=== PATIENT | female | born 1950 | race African-American/Black ===

== ENCOUNTER 2017-08-22 14:47 | Inpatient (IN) | payer OTHER ==
[~2017-08-22] VITALS: Ht 172.7 cm; Wt 81.4 kg
[2017-08-22] VITALS (26 sets, daily range): BP systolic 88–140; BP diastolic 49–97
--- NOTE | ~2017-08-22 | HC ---
[facility] [place] [address] CONSULTATION Name: ZARINA NICOLAS Room #: 411- ADM IN M.R.#: [id number] Admission: 08/22/17 Attend Phys: Kameron Mae MD Discharge: Date of : 48 Report #: [id number] THIS REPORT FOR: //name// CC: FAM unknown Kameron Mae DATE OF SERVICE: 08/26/2017 REFERRING PHYSICIAN: Kameron Mae MD. REASON FOR REFERRAL: Chest pain and dyspnea. HISTORY OF PRESENT ILLNESS: The patient is a 66-year-old -[place] female with end-stage renal disease, lupus, admitted with lethargy. She was admitted on 08/22/2017. The patient had complained of persistent chest discomfort. A pulmonary consultation was requested. The patient has been undergoing chronic hemodialysis for the past 20 years for her end-stage renal disease. She has systemic lupus erythematosus. She was doing fairly well until about a year ago. She was hospitalized at [facility], where she is normally hospitalized, that she had "clusters" of blood clots in the lung. She was then given anticoagulation. She said she was on Coumadin. She was also recently hospitalized in early 07/2017 at [facility] for an apparent cardiac arrest. She was found to be in pulseless electrical activity. The cardiac arrest occurred following a right breast biopsy. She remembers receiving CPR on 3 occasions. Ever since the cardiac arrest and CPR, she has had anterior chest wall discomfort that is episodic. It is not getting worse. The patient also smokes. She has been told that she has COPD. Aside from her symptoms, she denies any productive cough, hemoptysis, nausea, vomiting, diarrhea. During this hospital stay, she was found to have small pulmonary embolus by CT chest angiogram. She was also found to have small left-sided DVT. She is currently on anticoagulation. PAST MEDICAL HISTORY: Notable for systemic lupus erythematosus, end-stage renal disease, hemodialysis over the last 20 years, history of seizure disorder, recent cardiac arrest as mentioned above. [facility] [address] [place] [address] CONSULTATION Name: ZARINA NICOLAS Room #: 411-P [facility] IN M.R.#: [id number] Admission: 08/22/17 Attend Phys: Kameron Mae MD Discharge: Date of : 48 Report #: [id number] PAST SURGICAL HISTORY: Include right hip replacement, multiple dialysis catheter placement, partial amputation of the left toe due to history of ischemia involving the right toes, hypothyroidism. ALLERGIES: MORPHINE, SULFA, GABAPENTIN, REACTIONS NOT SPECIFIED. CURRENT MEDICATIONS: List is reviewed. FAMILY HISTORY: Noncontributory. SOCIAL HISTORY: She lives independently by herself. [place] She gets care primarily at [facility]. She has smoked less than a pack a day. She denies any alcohol abuse. REVIEW OF SYSTEMS: As mentioned above. Otherwise 10-point system review negative. PHYSICAL EXAMINATION: GENERAL: She is awake, alert, in no distress. VITAL SIGNS: Temperature is 97.7 degrees Fahrenheit, pulse is 100, respiratory rate is 18, blood pressure is 170/108 mmHg, saturation is 100%. HEENT: Normocephalic, atraumatic. NECK: Supple without lymphadenopathy or thyromegaly. CHEST: Breath sounds are fair without obvious rales or wheezes. CARDIOVASCULAR: Normal S1, S2. No murmurs or gallop. There is no JVD, no carotid bruit. Pulses are 2+/4+ bilaterally. ABDOMEN: Soft, nontender. No organomegaly or masses felt. GENITOURINARY: Deferred. RECTAL: Deferred. EXTREMITIES: There is no edema, cyanosis or clubbing. LABORATORY DATA: CT chest angiogram performed on admission shows small nonocclusive bilateral pulmonary embolus. Patchy infiltrates are seen in both bases, greater in the right lower lobe. Chest x-ray shows small lung volumes, cardiomegaly, infiltrates seen in the right lower lobe, mild atelectasis in the left mid lung field. Sodium 140, potassium 4.3, chloride is 102, bicarbonate is 27, BUN is 28, creatinine 6.1. WBC 66,800, hemoglobin is 8.3, platelets are normal. INR is 2.6. Arterial blood gas on admission revealed pH 7.38, pCO2 38, pO2 of 83 on 5 liters of O2. IMPRESSION: 1. Persistent chest discomfort in this 66-year-old -[place]yan female. Symptoms are likely related to recent CPR due to cardiac arrest. Note that symptoms started following her cardiac arrest. 2. Chronic obstructive pulmonary disease, with ongoing tobacco use. 3. Systemic lupus erythematosus with end-stage renal disease. [address] [address] CONSULTATION Name: ZARINA NICOLAS Room #: [facility]-P [facility] IN M.R.#: [id number] Admission: 08/22/17 Attend Phys: Kameron Mae MD Discharge: Date of : 48 Report #: [id number] 4. Small venothromboembolic disease, small bilateral pulmonary embolus, nonocclusive. This might be chronic. Small left deep venous thrombosis. This may also be chronic. She will be a candidate for prolonged anticoagulation given the comorbid condition and hypercoagulable state. 5. Acute hypoxic respiratory failure due to above. 6. Right lower lobe infiltrates, probable pneumonia, possible aspiration. 7. Anemia due to chronic disease. 8. Recent cardiac arrest, pulseless electrical activity, following an apparent biopsy. 9. History of seizure disorder. RECOMMENDATION: In regards to the chest discomfort, p.r.n. nonsteroidal Tylenol may be helpful. I do not think she needs narcotics. Symptoms should improve over time. Would continue bronchodilator therapy with DuoNeb q.i.d. p.r.n. I agree with broad-spectrum antibiotics for pneumonia. Thank you for this consultation. <ELECTRONICALLY SIGNED> By: Chivo Urbina MD 08/27/17 1407 1542 1916 Chivo Urbina MD /nt
--- NOTE | ~2017-08-22 | HC ---
[place] [address] CONSULTATION Name: ZARINA NICOLAS Room #: 246-P ADM IN M.R.#: [id number] Admission: 08/22/17 Attend Phys: Kameron Mae MD Discharge: Date of : 48 Report #: [id number] THIS REPORT FOR: //name// CC: FAM unknown Kameron Mae DATE OF SERVICE: 08/22/2017 REASON FOR CONSULTATION: End-stage renal disease. HISTORY OF PRESENT ILLNESS: This is a 66-year-old female who has end-stage renal disease and has been a chronic dialysis patient for about 20 years. Systemic lupus erythematosus is the etiology of her end-stage renal disease. Her recent history is one of developing some edema. This was both lower extremities in her feet and legs and then some swelling and erythema of her right breast. A few weeks ago in early July 2017, she was admitted to [facility]. During that time, she was going for a biopsy of this erythematous right breast and developed a pulseless electrical activity (PEA) arrest. She underwent CPR actually on 3 different occasions. Since that time, she has had a lot of chest pain. The patient and her sister who are here in the Emergency Room with her are unaware of what the etiology was surrounding the PEA arrest. After she left [facility], she was admitted to [facility] for some rehabilitation. She was doing better, was actually mobile, up and about and was set to get discharged to home in about 2 days from now. This morning though, she did not feel as well. She had increasing amounts of chest pain, which she has had since her CPR was done. She also was more hypoxemic. She has been on a lot of oxycodone and some chronic fentanyl patch for her chronic pain. EMS was called. They gave her some Narcan. She was brought in to the Emergency Room and she was hypoxemic. At this time, the patient states she is still having a lot of pain in her chest. This is worse with any cough or deep breathing, definitely pleuritic in nature. Her cough has been generally nonproductive. She is unaware of fever. She has felt dyspneic. 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 In the past, she was hypertensive, but now, she tends to run rather severe hypotension and in fact, gets midodrine before each dialysis. She has had some chronic lung disease and in fact, when I saw her about 5 years ago here in [facility], I listed COPD as a diagnosis. She has never had a long-term peripheral dialysis access. She is currently dialyzing with a right femoral vein tunneled dialysis catheter. She has had numerous upper venous catheters based on the scars on her chest. She also has a current what looks to be a right IJ infusion port. She has had previous hip replacement on the right. She has had a partial toe amputation on the left. More recently, she has had some ischemic digits on the right foot. Her sister tells me she was seen by a [address] [place] [address] CONSULTATION Name: ZARINA NICOLAS Room #: 246-P [facility] IN M.R.#: [id number] Admission: 08/22/17 Attend Phys: Kameron Mae MD Discharge: Date of : 49 Report #: [id number] vascular surgeon and was felt to have too many comorbidities for them to do anything to that and it is undetermined whether there were no vessels for target vessels or nothing amenable to percutaneous intervention. She also has a history of seizure disorder and hypothyroidism, on replacement. MEDICATIONS: Medication list is difficult as it covers about 20 pages of records brought over from her rehab center. She is on some Keppra. She is on some thyroid replacement. She is on some prednisone. She is on Renvela as a phosphate binder. She is on a lot of oxycodone and she has been on a fentanyl patch. We are trying to sort through all the other medications. It looks like she is still also on a little bit of prednisone, but unfortunately, I do not have the complete updated list in front of me. ALLERGIES: LISTED TO MORPHINE, SULFA AND GABAPENTIN. FAMILY HISTORY: Noncontributory. SOCIAL HISTORY: The patient is not . She is disabled. She normally lives in an apartment in [place] and dialyzes at [place], although she has been in and out of the hospital and now more recently at [facility]. REVIEW OF SYSTEMS: Has the pleuritic chest pain as noted above. I asked her about prior thrombotic episodes and the best that her sister can tell me is that she was previously on Coumadin, but had problems with GI bleeds while anticoagulated, so that was not kept up senior living. They are unaware of anything like a lupus anticoagulant. Recently developed lower extremity edema. She has chronic pain diffusely. She was getting up and walking some, was eager to get back to home. Appetite has been diminished. Currently, denies nausea or vomiting, had the increased swelling in her right breast with erythema that has actually gone down a little bit, but apparently, the biopsy was never done. She is anuric. PHYSICAL EXAMINATION: GENERAL: Chronically ill-appearing female, seen in the Intensive Care Unit. VITAL SIGNS: Blood pressure 122/75, heart rate 119, oxygen saturation 92% on 5 liters, temperature 98.0 degrees Fahrenheit. HEENT: Shows mildly swollen facial features. Pupils are equal and reactive. Oral mucosa is moist. NECK: Supple. There are numerous collateral vessels across the neck and chest friend, numerous scars from prior catheters. CHEST: Shows bilateral rales, slightly greater on the right than the left. Few rhonchi. HEART: Has a regular tachycardia with somewhat distant heart tones. BREASTS: Right breast is wallace than the left. I do not see the erythema, but there is some hyperpigmentation consistent with recent inflammation. [address] [place] [address] CONSULTATION Name: ZARINA NICOLAS Room #: 246-P ADM IN M.R.#: [id number] Admission: 08/22/17 Attend Phys: Kameron Mae MD Discharge: Date of : 48 Report #: [id number] ABDOMEN: Has a few bowel sounds present. Abdomen is soft, generally nontender. EXTREMITIES: Show 2+ bilateral lower extremity edema. Right toe shows numerous ischemic areas with some early dry gangrene. Absent pedal pulses. Left foot shows a partial amputation of the second toe. Several ischemic areas, one on the heel and a couple of crusted areas on the dorsum of the foot and toes. NEUROLOGIC: She is awake and responsive, oriented and able to converse, moving all extremities. LABORATORY DATA: Sodium 140, potassium 4.9, chloride 103, bicarb 28, BUN 45, creatinine 7.8, calcium 9.0, total protein 6.7, albumin 3.0. Troponin 0.05. INR 1.0. Hemoglobin 7.6, hematocrit 24.2, white count 10.7, platelets 254,000. Differential 90 segs, 3 lymphs, 5 monos, 1 eosinophil. Blood gas on admission, it looks like it is on 5 liters per nasal cannula, pH 7.38, pCO2 of 38.8, pO2 of 83. Chest x-ray shows small volume lungs, increased vascular congestion and early infiltrate/pulmonary edema per my interpretation. A CT scan of the chest done dynamically was interpreted as showing some small nonocclusive pulmonary emboli. ASSESSMENT: 1. A 66-year-old female with numerous chronic medical problems, comes in with hypoxemia. This is complicated by evidence of some volume overload and early pulmonary edema on chest x-ray, her end-stage renal disease, recent pulseless electrical activity arrest, and pain associated with her recent cardiopulmonary resuscitation. I do not know what role these small nonocclusive pulmonary emboli plays. She certainly would have a history to suggest she has potential for venous thrombi, but I am not sure of the small emboli or the cause of her hypoxemia or pain. We will do some dialysis this evening, try to get some volume off as her blood pressure allows to help with her oxygenation. We will obviously be very careful with her recent history of hypotension and pulseless electrical activity arrest. 2. End-stage renal disease, as noted above, last dialyzed 2 days ago. She says she frequently gets 2-3 liters of ultrafiltration with her dialysis. Complex problems with her chronic dialysis access, currently dialyzing using a tunneled right femoral vein catheter. Her neck and chest exam would certainly represent lots of central venous occlusions from old catheters. 3. Recent pulseless electrical activity arrest as noted above, currently in sinus tachycardia. 4. Long history of systemic lupus erythematosus, still on some prednisone. 5. History of seizure disorder. No evidence that she has had recent seizures. 6. Anemia, severe. I am sure she is chronically on erythropoietin, not in need of transfusion at this time. 7. This is a very complex patient with all the aforementioned problems. Again, we will do some dialysis tonight. We will see how she responds to that. She [address] [place] [address] CONSULTATION Name: ZARINA NICOLAS Room #: 246-P ADM IN M.R.#: [id number] Admission: 08/22/17 Attend Phys: Kameron Mae MD Discharge: Date of : 48 Report #: [id number] will likely need more dialysis again tomorrow, but we will reevaluate that pending her response to dialysis tonight. We will try to avoid severe hypotension. We will certainly pay attention for any arrhythmias and instability related to that. We will try to find out more details about any prior thromboembolic events. <ELECTRONICALLY SIGNED> By: Richard Leon MD 08/23/17 0736 1845 0130 Richard Leon MD /nt
--- NOTE | ~2017-08-22 | EEG ---
[facility] [place] [place] [address] ELECTROENCEPHALOGRAM Name: ZARINA NICOLAS Room #: 411-P [facility] IN M.R.#: [id number] Admission: 08/22/17 Attend Phys: Kameron Mae MD Discharge: Date of : 48 Report #: [id number] THIS REPORT FOR: //name// CC: FAM unknown Kameron Mae DATE OF SERVICE: 08/29/2017 This patient has a history of seizures and EEG is being done to evaluate any active seizure activity going on. The patient's EEG was done by placing the electrodes by standard 10-20 system of electrode placement. Background activity in this patient's EEG goes up to about 9 Hz and 30 microvolt. The patient became drowsy and that is associated with bilaterally symmetrical sleep spindle and vertex sharp waves. Photic stimulation was unremarkable. Throughout the record, no active epileptiform activity was noticed. IMPRESSION: This patient's EEG does not demonstrate any active epileptiform activity and was unremarkable. Thank you very much for this referral. By: 1437 1446 Ethan Brandon MD /nt
--- NOTE | ~2017-08-22 | EKG ---
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 SANCHEZ : 1950 Requested By: Kameron Mae Order Number: [id number] MD: Eleazar Romo Measurements Intervals [place] Rate: 119 P: 45 LA: 168 QRS: 48 QRSD: 96 T: 161 QT: 329 QTc: 463 Interpretive Statements Sinus tachycardia Probable left atrial enlargement Probable inferior infarct, old Consider anterior infarct Lateral leads are also involved Compared to ECG 08/22/2017 16:10:41 Myocardial infarct finding now present T-wave abnormality no longer present Electronically Signed On 08-27-2017 14:00:15 CDT by Eleazar Romo [email or web address] <ELECTRONICALLY SIGNED> By: Eleazar Romo MD 08/27/17 1400 6 6 Eleazar Romo MD /EPI
--- NOTE | ~2017-08-22 | EKG ---
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 : 1950 Requested By: Rommel Feng Order Number: [id number] MD: Eleazar Romo Measurements Intervals [place] Rate: 116 P: 26 AR: 172 QRS: 33 QRSD: 101 T: 66 QT: 331 QTc: 460 Interpretive Statements Sinus tachycardia Low voltage, precordial leads Nonspecific T abnormalities, lateral leads Compared to ECG 07/30/2012 17:25:02 T-wave abnormality now present Myocardial infarct finding no longer present Electronically Signed On 08-22-2017 21:29:18 CDT by Eleazar Romo [email or web address] <ELECTRONICALLY SIGNED> By: Eleazar Romo MD 08/22/17 2129 1610 1610 Eleazar Romo MD /EPI
--- NOTE | ~2017-08-22 | HC ---
[facility] [place] [address] CONSULTATION Name: ZARINA NICOLAS Room #: 246-P ADM IN M.R.#: [id number] Admission: 08/22/17 Attend Phys: Kameron Mae MD Discharge: Date of : 48 Report #: [id number] THIS REPORT FOR: //name// CC: FAM unknown Kameron Mae REASON FOR CONSULTATION: I was asked to evaluate concerning pneumonia. HISTORY OF PRESENT ILLNESS: The patient was a 66-year-old immunosuppressed and treatment for lupus. She has end-stage renal disease and history of seizure disorder. She has had previous respiratory failure. Was at the longterm where she became more lethargic. It was initially suspected from narcotics. However, she continued with tachycardia and lethargy. Chest x-ray showed bilateral pulmonary infiltrates. Hospitalized through the Emergency Room, placed in intensive care unit. Hemodynamically has been stable. She is on 5 liters of oxygen per nasal cannula. She takes prednisone on a daily basis. She has had poor IV access for her dialysis and is now dialyzing with a right femoral tunneled dialysis catheter. The patient was a poor historian. She has had cough with minimal sputum production. No pleuritic chest pain. She states her throat hurts and her bottom hurts. No recorded decubiti. ALLERGIES: SULFA. MEDICATIONS: As noted on her MAR, having been given vancomycin and Levaquin in the Emergency Room. PAST MEDICAL HISTORY: Lupus, COPD, gastroesophageal reflux, end-stage renal disease, bilateral total hip arthroplasties, right foot ORIF, thyroidectomy, seizure disorder, 2 code blues in the recent past. FAMILY HISTORY: Noncontributory. SOCIAL HISTORY: Smoker of cigarettes. No significant alcohol intake. Did not know her vaccination status. No history of tuberculosis exposure. REVIEW OF SYSTEMS: She has had no diarrhea. No nausea or vomiting. No headache. She is edentulous. Oliguric, neuropathy in both feet. PHYSICAL EXAMINATION: VITAL SIGNS: She is afebrile and hemodynamically stable. GENERAL: She is alert and cooperative on 5 liters of oxygen per nasal cannula. She would scream out when I tried to roll over in bed. SKIN: Otherwise, unremarkable. I did not see any decubiti. She had formed stool in the rectal vault. Small eschar type ulcers to her toes. Decreased pulses in her feet. She had a right tunneled femoral catheter for dialysis, which was unremarkable. HEENT: Unremarkable. Edentulous. [facility] [address] [place] [address] CONSULTATION Name: ZARINA NICOLAS Room #: 246-P [facility].#: [id number] Admission: 08/22/17 Attend Phys: Kameron Mae MD Discharge: Date of : 48 Report #: [id number] NECK: Supple. LUNGS: Coarse breath sounds bilaterally with consolidation heard in the bases, mostly on the right. HEART: Regular without murmur. ABDOMEN: Soft, obese, and nontender. No hepatosplenomegaly or mass. LABORATORY STUDIES: Blood cultures are pending. Chest x-ray shows evidence of edema and infiltrates, right greater than left. CT scan of the chest shows bilateral pulmonary emboli and basilar pneumonia changes. Hemoglobin 6.9, white count 11.6, platelet count 245,000. Sodium 138, potassium 4.3, bicarbonate 27, creatinine 4.5. Procalcitonin 2.5. Ultrasound of lower extremities shows evidence of small clot in the left common femoral vein. BNP was 18,000. Alkaline phosphatase 200, ALT 10, bilirubin 0.4, albumin 3. IMPRESSION AND PLAN: A 66-year-old with lupus, on steroids; end-stage renal disease, institutionalized at a longterm; presents now with pneumonia; pulmonary edema; pulmonary emboli. She has healthcare-associated organisms of most concern. I doubt we are dealing with atypical infectious etiology. Recommend broad antibiotic coverage to include vancomycin, Zosyn, azithromycin and Tamiflu. We will discontinue Levaquin due to potential risk for lowering her seizure threshold. We will obtain sputum culture. Viral respiratory panel, MRSA screen and await blood cultures. Adjust her antibiotics for her renal failure. <ELECTRONICALLY SIGNED> By: Tre Leach MD 08/24/17 1951 1429 1637 Tre Leach MD /nt
--- NOTE | ~2017-08-22 | 2DMMODE ---
[facility] [address] [place] [address] 2 D/M-MODE ECHOCARDIOGRAM Name: ZARINA NICOLAS Room #: 246-P [facility] IN M.R.#: [id number] Admission: 08/22/17 Attend Phys: Kameron Mae, Discharge: Date of : 48 Date of Service: 08/23/17 1607 Report #: [id number] THIS REPORT FOR: //name// APPROVED REPORT Study performed: 08/23/2017 13:55:07 EXAM: Comprehensive 2D, Doppler, and color-flow Echocardiogram Patient Location: ICU Room #: [facility] Status: routine BSA: 1.96 HR: 112 bpm BP: 116/73 mmHg Other Information Study Quality: Technically Difficult Technically limited study due to uncooperative patient, body habitus. Indications Congestive Heart Failure COPD Pulmonary Embolism Dyspnea 2D Dimensions RVDd: 24.92 mm LVEF(%): 67.71 (>50%) IVSd: 15.16 (7-11mm) LVOT Diam: 19.55 (18-24mm) LVDd: 37.84 mm PWd: 16.19 (7-11mm) Ascending Ao: 33.89 (22-36mm) LVDs: 23.83 (25-40mm) Aortic Root: 30.89 mm IVC: 15.00 mm Perea's LVEF: 67.71 % Volumes Left Atrial Volume (Systole) Single Plane 4CH: 83.31 mL Single Plane 2CH: 69.93 mL LA ESV Index: 42.00 mL/m2 Aortic Valve AoV Peak Demetrio.: 1.81 m/s AO Peak Gr.: 14.20 mmHg LVOT Max P.52 mmHg LVOT Max V: 1.06 m/s LUL Vmax: 1.76 cm2 [facility] [place] [address] [place] [address] 2 D/M-MODE ECHOCARDIOGRAM Name: ZARINA NICOLAS Room #: [facility] IN M.R.#: [id number] Admission: 08/22/17 Attend Phys: Kameron Mae, Discharge: Date of : 48 Date of Service: 08/23/17 1607 Report #: [id number] Mitral Valve MV Decel. Time: 140.65 ms MV E Max Demetrio.: 1.68 m/s IVRT: 121.11 ms Pulmonary Valve PV Peak Demetrio.: 1.01 m/s PV Peak Gr.: 4.08 mmHg Tricuspid Valve RAP Estimate: 10.00 mmHg Left Ventricle The left ventricle is normal size. Possible inferoapical hypokinesis Moderate concentric left ventricular hypertrophy. The left ventricular systolic function is normal. The left ventricular ejection fraction is within the normal range. LVEF is 65%. This study is not technically sufficient to allow evaluation of the LV diastolic function due to high heart rate. Right Ventricle The right ventricle is normal size. The right ventricular systolic function is normal. Atria Left atrium is dilated. The right atrium size is normal. Aortic Valve Aortic leaflets are sclerotic. No aortic regurgitation is present. There is no aortic valvular stenosis. Mitral Valve Moderate mitral annular calcification There is no mitral valve regurgitation noted. No evidence of mitral valve stenosis. Tricuspid Valve The tricuspid valve is normal in structure. Trace tricuspid regurgitation. Unable to assess PA pressure. Pulmonic Valve Pulmonic valve is not well visualized. There is no pulmonic valvular regurgitation. Great Vessels The aortic root is normal in size. IVC is normal in size and collapses <50% with inspiration. Port o cath visualized in [facility] [address] [place] [address] 2 D/M-MODE ECHOCARDIOGRAM Name: ZARINA NICOLAS Room #: 246-P [facility] IN .R.#: [id number] Admission: 08/22/17 Attend Phys: Kameron Mae, Discharge: Date of : 48 Date of Service: 08/23/17 1607 Report #: [id number] IVC. Pericardium There is no pericardial effusion. <Conclusion> Technically limited study The left ventricular systolic function is normal. Possible inferoapical hypokinesis. LVEF 65%. Both atria are mildly dilated Aortic leaflets are sclerotic. No aortic regurgitation or stenosis Moderate mitral annular calcification. No mitral valve regurgitation noted. There is no pericardial effusion. <ELECTRONICALLY SIGNED> By: Kyle Givens MD, [facility] 08/23/17 1607 160 160 Kyle Givens MD, FAC /INF
--- NOTE | ~2017-08-22 | HC ---
[facility] [place] [address] [place] [address] CONSULTATION Name: ZARINA NICOLAS Room #: 411-P ADM IN M.R.#: [id number] Admission: 08/22/17 Attend Phys: Kameron Mae MD Discharge: Date of : 48 Report #: [id number] THIS REPORT FOR: //name// CC: FAM unknown Kameron Mae DATE OF SERVICE: 08/27/2017 HISTORY OF PRESENT ILLNESS: This is a 66-year-old female patient who is not able to provide any history. I called the patient's sisters, whose number is in the chart, but cannot reach her. The patient's Neurology consultation is requested because the patient's Keppra level was found to be high. I talked to the nurses looking after this patient. She tells me that she started having seizures when she was about 12. She had grand mal seizures as well as petite mal seizure. She has not had a grand mal seizure for a long period of time. However, she had an EEG done in [facility] and she indicated that EEG has shown still seizure activity and that is why they wanted her to be on Keppra. She is a renal patient. She gets a significant dose of renal. The schedule is renal based. I do not know when was this Keppra level checked. She has no significant side effects from Keppra the best I can tell. She was admitted with lethargy, but that was associated with other medications. REVIEW OF SYSTEMS: Pretty extensive in this patient. I carried out the 14-point review of system and reviewed the patient's record. She was admitted with lethargy. She has problem with respiration, pulmonary embolism, congestive heart failure, end-stage renal disease, opioid use, history of seizure, history of thyroidectomy and lupus. 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 She has undergone code blue in the past. She also has respiratory difficulty in the past. Her memory looks poor, but I do not know what her memory is in her baseline because I cannot reach her system. I carried out the 14-point review of system and this was relevant 14-point review of system. PAST MEDICAL HISTORY: Positive for seizure. FAMILY HISTORY: According to her, is negative for any epilepsy. SOCIAL HISTORY: She does not smoke or drink alcohol. PHYSICAL EXAMINATION: Indicate she is alert, she is responsive. She is only partly oriented. Her speech looks intact. Her memory and fund of knowledge is significantly diminished. Cranial nerve examination 2-12 looks unremarkable. Strength, sensation, reflexes and tone looks symmetrical, but she did poorly on position sense on both sides and reflexes were diminished on both sides. Her klmata-oh-mtic looks okay. I could not have a very good look at the patient's fundus because she could not stare long enough. Her pulses were difficult to feel, and I could not feel them well and she has no edema, cyanosis or jaundice. [address] [address] CONSULTATION Name: ZARINA NICOLAS Room #: 411-P [facility] IN M.R.#: [id number] Admission: 08/22/17 Attend Phys: Kameron Mae MD Discharge: Date of : 48 Report #: [id number] She is moderately built. There are no dysmorphic features of eyes, ears and face. Her vision and hearing looks adequate. Cardiac examination mostly unremarkable. Respiratory examinations indicate the respiration appeared to be stable and she does not appear to be in much respiratory difficulty. She has some rhonchi, but looks like she has significantly improved since admission. Blood pressure is 128/81, respiration is 20, pulse is 120, temperature is 98.2. LABORATORY DATA: Indicate a white count of 6.8. Sodium is 139. She did have a CT scan of the head, which was mostly unremarkable. IMPRESSION: Very difficult to in this patient. It looks like she is on Keppra. Her level is high, but she is not having any significant side effect. Keppra levels are typically not checked and the dosages are on the basis of clinical tolerance, but this is much higher since it has been checked. I will repeat it especially because she is having no significant side effects from it. I would like to get the record from [place] to see how severe her seizures were. RECOMMENDATIONS: 1. Presently, I am going to leave her on the same dose of Keppra as she is not having any side effect. 2. I will get the record from [facility] to see what the levels were there if they checked it. 3. I will repeat her Keppra and see what the level is. 4. If we are unable to get record from [place], we might repeat some EEG here. Thank you very much for this referral and I discussed all of it with the patient in detail. By: 19 44 Ethan Brandon MD /nt
[~2017-08-22 14:47] MED LIST: AMITRIPTYLINE H25 M2 PO; ASPIRIN EC81 M1 PO; CALCIUM CARBON500 M3 PO; COUMADIN 3 MG TA3 MG PO; DIPHENHYDRAM50 MG/M2 IV; DUONEB 2.5-0.5 M3 ML; ESCITALOPRAM OX10 MG PO; KEPPRA 500 MG500 M2 PO; KEPPRA 500 MG500 MG PO; LAMICTAL100 MG PO; LEVOXYL175 MCG PO; LIDODERM 5%1 PATC1 TOP; NORCO 5-325 TA1 EACH PO; NYSTATIN1 EA10; OXYCODONE HCL 55 MG PO; PREDNISONE 5 MG5 M1 PO; PROTONIX40 M2 PO; QUESTRAN LIGHT P4 GM PO; RENVELA800 MG PO; TRILEPTAL150 MG PO; VASOLEX OINTMEN60 G1 TOP; ZOFRAN4 MG PO
[2017-08-22 15:17] LABS: BE(vivo) -2.2 mmol/L (-2 to +3); HCO3 22.6 mmol/L (22.0-26.0); PCO2 38.8 mmHg (35.0-45.0); PO2 83.2 mmHg (80.0-100.0); pH 7.383 (7.360-7.450); sO2 96.1 % (92.0-98.0)
[2017-08-22 15:22] LABS: ABSOLUTE NEUTROPHILS 9.7 thou/uL (1.4-8.2); BASOPHILS 0.4 % (0.0-2.0); EOSINOPHILS 0.9 % (0.0-3.0); HEMATOCRIT 24.2 % (37.0-47.0); HEMOGLOBIN 7.6 gm/dL (12.0-15.0); LYMPHOCYTES 3.1 % (24.0-44.0); MCH 30.3 pg (26.0-34.0); MCHC 31.3 g/dL (28.0-37.0); MCV 96.9 fL (80.0-100.0); MONOCYTES 5.4 % (1.0-8.0); PLATELET COUNT 254 thou/uL (150-400); POLYS 90.2 % (36.0-66.0); RDW 19.6 % (10.5-14.5); WBC 10.7 thou/uL (4.0-11.0)
[2017-08-22 15:27] LABS: ANION GAP 9 mmol/L (7-16); BUN 45 mg/dL (7-18); CHLORIDE 103 mmol/L (98-107); CO2 28 mmol/L (21-32); CREATININE 7.8 mg/dL (0.6-1.0); GLUCOSE 103 mg/dL (74-106); POTASSIUM 4.9 mmol/L (3.5-5.1); SODIUM 140 mmol/L (136-145)
[2017-08-22 15:36] LABS: SALICYLATE < 2.8 mg/dL (2.8-20.0); SGOT 20 U/L (15-37); SGPT 10 U/L (30-65); TOTAL BILIRUBIN 0.4 mg/dL (<0.1-1.0); TOTAL PROTEIN 6.7 g/dL (6.4-8.2); TROPONIN-I 0.05 ng/mL (<0.06)
[2017-08-22 18:06] LABS: PROTIME 10.6 Seconds (9.3-11.4)
[2017-08-22] MEDS ORDERED: LIPITOR 20 MG T20 M1 PO (19:31)
[2017-08-22] MEDS ORDERED: PLAVIX 75 MG TA75 M1 PO (19:31)
[2017-08-22] MEDS ORDERED: ARANESP100 MCG/0. SUBQ (19:32)
[2017-08-22] MEDS ORDERED: SENOKOT-S1 TA2 PO (19:33)
[2017-08-22] MEDS ORDERED: VOLTAREN GEL 1100 G2 TOP (19:33)
[2017-08-22] MEDS ORDERED: COLACE100 MG PO (19:33)
[2017-08-22] MEDS ORDERED: DURAGESIC25 MCG/HR TRANSDERM (19:34)
[2017-08-22] MEDS ORDERED: FAMOTIDINE 20 M20 MG PO (19:34)
[2017-08-22] MEDS ORDERED: FOLIC ACID1 MG PO (19:35)
[2017-08-22] MEDS ORDERED: BREO ELLIPTA 11 EACH INH (19:35)
[2017-08-22] MEDS ORDERED: PROTONIX40 M1 PO (19:35)
[2017-08-22] MEDS ORDERED: MIDODRINE HCL 55 M1 PO (19:35)
[2017-08-22] MEDS ORDERED: LYRICA 50 MG50 MG PO (19:36)
[2017-08-22] MEDS ORDERED: SIMETHICON CHEW80 M1 PO (19:36)
[2017-08-22] MEDS ORDERED: TYLENOL325 MG PO (19:36)
[2017-08-23] VITALS (70 sets, daily range): BP systolic 78–144; BP diastolic 45–126
[2017-08-23 04:05] LABS: CALCIUM 8.5 mg/dL (8.5-10.1); MAGNESIUM 1.7 mg/dL (1.8-2.4); POTASSIUM 4.3 mmol/L (3.5-5.1)
[2017-08-23 04:10] LABS: CREATININE 4.5 mg/dL (0.6-1.0)
[2017-08-23 05:46] LABS: HEMOGLOBIN 6.9 gm/dL (12.0-15.0)
[2017-08-23 05:47] LABS: HEMATOCRIT 22.3 % (37.0-47.0); MCH 30.1 pg (26.0-34.0); MCHC 30.7 g/dL (28.0-37.0); MCV 97.9 fL (80.0-100.0); RBC 2.28 mil/uL (4.20-5.00); WBC 11.6 thou/uL (4.0-11.0)
[2017-08-23 12:11] LABS: HEP B SURFACE Ab(ANTI-HBS Reactive (()); HEPATITIS B SURFACE AG Negative (Negative)
[2017-08-24] VITALS (55 sets, daily range): BP systolic 88–176; BP diastolic 50–109
[2017-08-24 01:57] LABS: INR 1.6; PROTIME 15.8 Seconds (9.3-11.4)
[2017-08-24 05:29] LABS: HEMOGLOBIN 6.5 gm/dL (12.0-15.0)
[2017-08-24 05:31] LABS: HEMATOCRIT 20.9 % (37.0-47.0); MCH 30.2 pg (26.0-34.0); MCHC 31.3 g/dL (28.0-37.0); MCV 96.4 fL (80.0-100.0); RBC 2.16 mil/uL (4.20-5.00); WBC 9.5 thou/uL (4.0-11.0)
[2017-08-24 05:39] LABS: CALCIUM 8.7 mg/dL (8.5-10.1); MAGNESIUM 1.8 mg/dL (1.8-2.4); POTASSIUM 4.7 mmol/L (3.5-5.1)
[2017-08-24 05:41] LABS: CREATININE 6.2 mg/dL (0.6-1.0)
[2017-08-25] VITALS (12 sets, daily range): BP systolic 144–182; BP diastolic 70–112
[2017-08-25 05:59] LABS: ABSOLUTE NEUTROPHILS 7.2 thou/uL (1.4-8.2); BASOPHILS 0.2 % (0.0-2.0); EOSINOPHILS 1.9 % (0.0-3.0); HEMATOCRIT 25.6 % (37.0-47.0); HEMOGLOBIN 8.2 gm/dL (12.0-15.0); LYMPHOCYTES 8.4 % (24.0-44.0); MCHC 32.2 g/dL (28.0-37.0); MCV 93.4 fL (80.0-100.0); MONOCYTES 6.4 % (1.0-8.0); PLATELET COUNT 236 thou/uL (150-400); POLYS 83.1 % (36.0-66.0); RBC 2.74 mil/uL (4.20-5.00); WBC 8.6 thou/uL (4.0-11.0)
[2017-08-25 06:10] LABS: APTT 55.1 Seconds (24.5-32.8); PROTIME 16.1 Seconds (9.3-11.4)
[2017-08-25 06:11] LABS: INR 1.6
[2017-08-25 06:15] LABS: CALCIUM 8.9 mg/dL (8.5-10.1); MAGNESIUM 1.7 mg/dL (1.8-2.4); POTASSIUM 4.2 mmol/L (3.5-5.1)
[2017-08-25 06:16] LABS: CREATININE 4.5 mg/dL (0.6-1.0)
[2017-08-26 04:00] VITALS: BP 180/106
[2017-08-26 06:04] LABS: HEMATOCRIT 25.9 % (37.0-47.0); HEMOGLOBIN 8.3 gm/dL (12.0-15.0); MCH 29.7 pg (26.0-34.0); MCHC 32.3 g/dL (28.0-37.0); MCV 92.1 fL (80.0-100.0); RBC 2.81 mil/uL (4.20-5.00); RDW 18.8 % (10.5-14.5); WBC 6.8 thou/uL (4.0-11.0)
[2017-08-26 06:17] LABS: MAGNESIUM 1.7 mg/dL (1.8-2.4); POTASSIUM 4.3 mmol/L (3.5-5.1)
[2017-08-26 06:22] LABS: CREATININE 6.1 mg/dL (0.6-1.0)
[2017-08-26 07:15] VITALS: BP 172/108
[2017-08-26 07:56] LABS: PROTIME 26.1 Seconds (9.3-11.4)
[2017-08-26 07:58] LABS: INR 2.6
[2017-08-26 16:41] VITALS: BP 149/106
[2017-08-26 20:20] VITALS: BP 122/71
[2017-08-27 03:54] LABS: INR 3.2; PROTIME 31.7 Seconds (9.3-11.4)
[2017-08-27 07:30] VITALS: BP 145/98
[2017-08-27 15:48] VITALS: BP 128/81
[2017-08-27 19:55] VITALS: BP 126/89
[2017-08-28 00:06] LABS: ADENOVIRUS Negative (Negative); INFLUENZA A Negative (Negative); INFLUENZA B Negative (Negative); METAPNEUMOVIRUS Negative (Negative); PARAINFLUENZA 1 Negative (Negative); PARAINFLUENZA 2 Negative (Negative); PARAINFLUENZA 3 Negative (Negative); RHINOVIRUS Negative (Negative); RSV A Negative (Negative); RSV B Negative (Negative)
[2017-08-28 03:52] VITALS: BP 145/98
[2017-08-28 05:54] LABS: PROTIME 28.1 Seconds (9.3-11.4)
[2017-08-28 05:58] LABS: INR 2.9
[2017-08-28 12:01] LABS: HEMATOCRIT 27.3 % (37.0-47.0); HEMOGLOBIN 8.8 gm/dL (12.0-15.0); MCH 29.3 pg (26.0-34.0); MCHC 32.1 g/dL (28.0-37.0); MCV 91.2 fL (80.0-100.0); RDW 19.2 % (10.5-14.5); WBC 6.2 thou/uL (4.0-11.0)
[2017-08-28 12:22] LABS: MAGNESIUM 1.8 mg/dL (1.8-2.4); POTASSIUM 3.8 mmol/L (3.5-5.1); TROPONIN-I 0.06 ng/mL (<0.06)
[2017-08-28 12:23] LABS: CREATININE 3.3 mg/dL (0.6-1.0)
[2017-08-28 16:20] VITALS: BP 142/90
[2017-08-28 20:24] VITALS: BP 125/89
[2017-08-29 04:44] LABS: INR 2.2; PROTIME 21.8 Seconds (9.3-11.4)
[2017-08-29 05:49] VITALS: BP 159/112
[2017-08-29 07:15] VITALS: BP 190/120
[2017-08-29] MEDS ORDERED: COUMADIN 2 MG TA2 M1 PO (14:27)
[2017-08-29] MEDS ORDERED: CEFDINIR300 MG PO (14:27)
[2017-08-29] MEDS ORDERED: AZITHROMYCIN 2250 MG PO (14:27)
[2017-08-29] MEDS ORDERED: COREG6.25 MG PO (14:28)
[2017-08-29] MEDS ORDERED: AMLODIPINE BESY10 MG PO (14:29)
[2017-08-29] MEDS ORDERED: LOTENSIN20 MG PO (14:29)
[2017-08-29] MEDS ORDERED: KEPPRA 500 MG500 M1 PO (14:31)
[2017-08-29] MEDS ORDERED: KEPPRA 500 MG500 MG PO (14:31)
[2017-08-29] MEDS ORDERED: MUCINEX600 MG PO (14:32)
== END 2017-08-29 17:00 | DRG 871 ==
LOC: ER 14:47 → EROBS 16:29 → ICU 16:29 → 4N 08-25 07:01
PROVIDERS: Internal Medicine; Internal Medicine Nephrology; Physician Assistant; Specialist
PROC: 5A1D70Z Performance of Urinary Filtration, Intermittent, Less than 6 Hours Per Day (ICD-10-PCS; 2017-08-22)
PROC: B24BZZ4 Ultrasonography of Heart with Aorta, Transesophageal (ICD-10-PCS; principal; 2017-08-23)
PROC: 5A09357 Assistance with Respiratory Ventilation, Less than 24 Consecutive Hours, Continuous Positive Airway Pressure (ICD-10-PCS; principal; 2017-08-23)
PROC: 5A1D70Z Performance of Urinary Filtration, Intermittent, Less than 6 Hours Per Day (ICD-10-PCS; 2017-08-24)
PROC: 30233N1 Transfusion of Nonautologous Red Blood Cells into Peripheral Vein, Percutaneous Approach (ICD-10-PCS; 2017-08-24)
PROC: 5A1D70Z Performance of Urinary Filtration, Intermittent, Less than 6 Hours Per Day (ICD-10-PCS; 2017-08-26)
PROC: 5A1D70Z Performance of Urinary Filtration, Intermittent, Less than 6 Hours Per Day (ICD-10-PCS; 2017-08-28)
PROC: 4A00X4Z Measurement of Central Nervous Electrical Activity, External Approach (ICD-10-PCS; 2017-08-29)
DX: A41.9 Sepsis, unspecified organism (principal); I26.99 Other pulmonary embolism without acute cor pulmonale; J18.9 Pneumonia, unspecified organism; N18.6 End stage renal disease; J96.01 Acute respiratory failure with hypoxia; I46.9 Cardiac arrest, cause unspecified; G92 Toxic encephalopathy; J44.0 Chronic obstructive pulmonary disease with (acute) lower respiratory infection; I82.412 Acute embolism and thrombosis of left femoral vein; I12.0 Hypertensive chronic kidney disease with stage 5 chronic kidney disease or end stage renal disease; M32.9 Systemic lupus erythematosus, unspecified; G40.909 Epilepsy, unspecified, not intractable, without status epilepticus; D63.8 Anemia in other chronic diseases classified elsewhere; Z66 Do not resuscitate; I73.9 Peripheral vascular disease, unspecified; G89.29 Other chronic pain; D63.1 Anemia in chronic kidney disease; L97.529 Non-pressure chronic ulcer of other part of left foot with unspecified severity; L97.519 Non-pressure chronic ulcer of other part of right foot with unspecified severity; Y95 Nosocomial condition; K21.9 Gastro-esophageal reflux disease without esophagitis; E89.0 Postprocedural hypothyroidism; F17.210 Nicotine dependence, cigarettes, uncomplicated; E66.9 Obesity, unspecified; Z96.643 Presence of artificial hip joint, bilateral; Z99.2 Dependence on renal dialysis; Z68.27 Body mass index [BMI] 27.0-27.9, adult; Z89.422 Acquired absence of other left toe(s); Z79.02 Long term (current) use of antithrombotics/antiplatelets; Z79.51 Long term (current) use of inhaled steroids; Z79.82 Long term (current) use of aspirin; Z79.899 Other long term (current) drug therapy; Z88.2 Allergy status to sulfonamides; Z88.5 Allergy status to narcotic agent; Z88.8 Allergy status to other drugs, medicaments and biological substances
CPT/HCPCS: 10078; 10790; 32100

== ENCOUNTER 2018-05-29 09:21 | Emergency (ER) | payer OTHER ==
[~2018-05-29] VITALS: Ht 162.6 cm; Wt 58.2 kg
[~2018-05-29 09:21] MED LIST changes: +AMLODIPINE BESY10 MG PO; +ARANESP100 MCG/0. SUBQ; +AZITHROMYCIN 2250 MG PO; +BREO ELLIPTA 11 EACH INH; +CEFDINIR300 MG PO; +COLACE100 MG PO; +COREG6.25 MG PO; +COUMADIN 2 MG TA2 M1 PO; +DURAGESIC25 MCG/HR TRANSDERM; +FAMOTIDINE 20 M20 MG PO; +FOLIC ACID1 MG PO; +KEPPRA 500 MG500 M1 PO; +LIPITOR 20 MG T20 M1 PO; +LOTENSIN20 MG PO; +LYRICA 50 MG50 MG PO; +MIDODRINE HCL 55 M1 PO; +MUCINEX600 MG PO; +PLAVIX 75 MG TA75 M1 PO; +PROTONIX40 M1 PO; +SENOKOT-S1 TA2 PO; +SIMETHICON CHEW80 M1 PO; +TYLENOL325 MG PO; +VOLTAREN GEL 1100 G2 TOP
[2018-05-29 10:30] LABS: INR 3.2; PROTIME 33.5 Seconds (9.3-11.4)
[2018-05-29] MEDS ORDERED: TRAMADOL 50 MG50 MG PO (10:56)
[2018-05-29] MEDS ORDERED: TYLENOL325 MG PO (11:08)
[2018-05-29] MEDS ORDERED: REMERON15 MG PO (11:16)
[2018-05-29] MEDS ORDERED: CARDIZEM60 MG PO (11:17)
[2018-05-29] MEDS ORDERED: HEPARIN IV (11:18)
[2018-05-29] MEDS ORDERED: NITROGLYCERIN0.4 MG SUBLING (11:19)
[2018-05-29] MEDS ORDERED: DEPAKOTE ER250 MG PO (11:19)
[2018-05-29] MEDS ORDERED: NYAMYC15 GM TOP (11:20)
[2018-05-29] MEDS ORDERED: SEROQUEL 25 MG25 M1 PO (11:21)
[2018-05-29] MEDS ORDERED: FEROSUL325 M1 PO (11:21)
[2018-05-29] MEDS ORDERED: ATIVAN0.5 MG PO (11:22)
[2018-05-29] MEDS ORDERED: KEFLEX500 M1 PO (11:22)
[2018-05-29] MEDS ORDERED: HECTOROL4 MCG/2 ML IV PUSH (11:23)
[2018-05-29] MEDS ORDERED: ZINC OXIDE57 GM TOP (11:24)
[2018-05-29] MEDS ORDERED: LIDOCAINE1 EACH TOP (11:25)
[2018-05-29 13:34] VITALS: BP 105/76
== END 2018-05-29 13:44 ==
LOC: ER 09:21
PROVIDERS: Emergency Medicine
DX: S43.001A Unspecified subluxation of right shoulder joint, initial encounter (principal); J44.9 Chronic obstructive pulmonary disease, unspecified; K21.9 Gastro-esophageal reflux disease without esophagitis; M32.9 Systemic lupus erythematosus, unspecified; N18.6 End stage renal disease; Z99.2 Dependence on renal dialysis; E89.0 Postprocedural hypothyroidism; Z79.01 Long term (current) use of anticoagulants; Z88.2 Allergy status to sulfonamides; W06.XXXA Fall from bed, initial encounter; Y93.89 Activity, other specified; Y92.89 Other specified places as the place of occurrence of the external cause; Y99.8 Other external cause status

== ENCOUNTER 2018-06-07 22:24 | Inpatient (IN) | payer OTHER ==
[~2018-06-07] VITALS: Ht 167.6 cm; Wt 87.9 kg
[~2018-06-07 22:24] MED LIST changes: +ATIVAN0.5 MG PO; +CARDIZEM60 MG PO; +DEPAKOTE ER250 MG PO; +FEROSUL325 M1 PO; +HECTOROL4 MCG/2 ML IV PUSH; +HEPARIN IV; +KEFLEX500 M1 PO; +LIDOCAINE1 EACH TOP; +NITROGLYCERIN0.4 MG SUBLING; +NYAMYC15 GM TOP; +REMERON15 MG PO; +SEROQUEL 25 MG25 M1 PO; +TRAMADOL 50 MG50 MG PO; +ZINC OXIDE57 GM TOP
[2018-06-07 22:50] LABS: ABSOLUTE NEUTROPHILS 10.5 thou/uL (1.4-8.2); BASOPHILS 0.1 % (0.0-2.0); EOSINOPHILS 0.1 % (0.0-3.0); HEMATOCRIT 25.9 % (37.0-47.0); HEMOGLOBIN 8.3 gm/dL (12.0-15.0); MCV 90.6 fL (80.0-100.0); MONOCYTES 7.6 % (1.0-8.0); PLATELET COUNT 165 thou/uL (150-400); POLYS 89.2 % (36.0-66.0); RBC 2.86 mil/uL (4.20-5.00); RDW 19.8 % (10.5-14.5); WBC 11.8 thou/uL (4.0-11.0)
[2018-06-07 22:56] LABS: CALCIUM 9.5 mg/dL (8.5-10.1); CREATININE 6.4 mg/dL (0.6-1.0); POTASSIUM 4.6 mmol/L (3.5-5.1)
--- NOTE | 2018-06-07 23:04 | NUR ---
SPOKE W/ CELIA BHARDWAJ AT [facility] AND WAS INFORMED THAT THE PT IS A FULL CODE AND NO LONGER PRODUCES URINE. PROVIDER MADE AWARE OF NEW INFORMATION
[2018-06-07 23:05] LABS: ALBUMIN 2.1 g/dL (3.4-5.0); MAGNESIUM 1.8 mg/dL (1.8-2.4); TOTAL BILIRUBIN 0.3 mg/dL (<0.1-1.0); TOTAL PROTEIN 7.9 g/dL (6.4-8.2)
[2018-06-07 23:07] LABS: TROPONIN-I 3.91 ng/mL (<0.06)
[2018-06-08] VITALS (7 sets, daily range): BP systolic 87–128; BP diastolic 49–71
[2018-06-08 00:40] LABS: APTT 47.2 Seconds (24.5-32.8); INR 1.6; PROTIME 16.5 Seconds (9.3-11.4)
--- NOTE | 2018-06-08 02:52 | NUR ---
PTTRASNFERRED TO ROOM 215 IN NAD. A/O X O. DOES NOT FC. AEFRBRILE AND NORMOTENSIVE. HR>130 BPM. ORDER FOR METOPROLOL 5MG IVP HAD BEEN HELD IN THE ED BY NURSING. DISCUSSED WITH CHARGE NURSE AND THIS MED WAS GIVEN ON THE FLOOR. BP =(110-120)/70'S. SKIN IS INTACT, DRY, MUCOSA PINK, LUNGS DIMINISHED, BREATHING IS EVEN AND REGULAR.
[2018-06-08] MEDS ORDERED: CLOTRIMAZOLE 1%15 G1 TOP (08:00)
[2018-06-08] MEDS ORDERED: COUMADIN 2 MG TA2 M1 PO (08:08)
[2018-06-08] MEDS ORDERED: SENNA8.6 MG PO (08:15)
--- NOTE | 2018-06-08 08:28 | EKG ---
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
[2018-06-08] MEDS ORDERED: RENVELA800 MG PO (11:19)
[2018-06-08] MEDS ORDERED: ATIVAN0.5 MG PO (11:21)
--- NOTE | 2018-06-08 12:17 | 2DMMODE ---
[facility] [address] [place] [address] 2 D/M-MODE ECHOCARDIOGRAM Name: ZARINA NICOLAS Room #: 215-P ADM IN M.R.#: [id number] Admission: 06/08/18 Attend Phys: Wilman Jefferson MD Discharge: Date of : 48 Date of Service: 06/08/18 1216 Report #: [id number] THIS REPORT FOR: //name// APPROVED REPORT Study performed: 06/08/2018 10:55:37 EXAM: Comprehensive 2D, Doppler, and color-flow Echocardiogram Patient Location: Bedside Room #: 215 Status: routine BSA: 1.95 HR: 105 bpm BP: 87/49 mmHg Rhythm: Tachycardia Other Information Study Quality: Adequate Indications COPD Elevated Troponin Chest Pain Hypertension/HDD 2D Dimensions RVDd: 32.83 mm IVSd: 15.48 (7-11mm) LVOT Diam: 18.84 (18-24mm) LVDd: 41.19 mm PWd: 16.89 (7-11mm) Ascending Ao: 27.92 (22-36mm) LVDs: 27.91 (25-40mm) Aortic Root: 30.61 mm IVC: 18.00 mm Volumes Left Atrial Volume (Systole) Single Plane 4CH: 47.28 mL Single Plane 2CH: 80.57 mL LA ESV Index: 35.00 mL/m2 Aortic Valve AoV Peak Demetrio.: 1.40 m/s AO Peak Gr.: 7.85 mmHg LVOT Max P.72 mmHg LVOT Max V: 1.20 m/s LUL Vmax: 2.38 cm2 Pulmonary Valve [facility] [address] [address] 2 D/M-MODE ECHOCARDIOGRAM Name: ZARINA NICOLAS Room #: 215-P ADM IN .R.#: [id number] Admission: 06/08/18 Attend Phys: Wilman Jefferson MD Discharge: Date of : 48 Date of Service: 06/08/18 1216 Report #: [id number] PV Peak Demetrio.: 0.88 m/s PV Peak Gr.: 3.12 mmHg Tricuspid Valve TR Peak Demetrio.: 2.63 m/s TR Peak Gr.: 27.74 mmHg PA Pressure: 38.00 mmHg Left Ventricle The left ventricle is normal size. Moderate concentric left ventricular hypertrophy. The left ventricular systolic function is normal. The left ventricular ejection fraction is within the normal range. LVEF is 55-60%. This study is not technically sufficient to allow evaluation of the LV diastolic function. Right Ventricle The right ventricle is normal size. The right ventricular systolic function is normal. Atria Left atrium is dilated. Right atrium is at the upper limits of normal. Aortic Valve The aortic valve is normal in structure. Aortic valve is calcified. No aortic regurgitation is present. There is no aortic valvular stenosis. Mitral Valve The mitral valve is normal in structure. Mild mitral regurgitation. No evidence of mitral valve stenosis. Tricuspid Valve The tricuspid valve is normal in structure. There is mild tricuspid regurgitation. Estimated PAP 38 mmHg. There is mild pulmonary hypertension. Pulmonic Valve The pulmonary valve is normal in structure. There is no pulmonic valvular regurgitation. Great Vessels The aortic root is normal in size. IVC is normal in size and collapses <50% with inspiration. Pericardium There is no pericardial effusion. [facility] [address] [address] 2 D/M-MODE ECHOCARDIOGRAM Name: ZARINA NICOLAS Room #: 215-P [facility] IN M.R.#: [id number] Admission: 06/08/18 Attend Phys: Wilman Jefferson MD Discharge: Date of : 48 Date of Service: 06/08/18 1216 Report #: [id number] <Conclusion> The left ventricle is normal size. LVEF is 55-60%. The right ventricle is normal size. Left atrium is dilated. Right atrium is at the upper limits of normal. The aortic valve is normal in structure. Aortic valve is calcified. The mitral valve is normal in structure. Mild mitral regurgitation. The tricuspid valve is normal in structure. There is mild tricuspid regurgitation. Estimated PAP 38 mmHg. There is mild pulmonary hypertension. The pulmonary valve is normal in structure. There is no pericardial effusion. <ELECTRONICALLY SIGNED> By: Ej Mix MD 06/08/18 1216 1216 15 Ej Mix MD /INF
--- NOTE | 2018-06-08 14:47 | NUR ---
Met with sisters at bedside. Patient with confusion admits with fever,tachy. [facility] Sisters concerned once dont with skilled if ltc bed avail. Sp with Thelma in admissions she sp with [facility] and they do have ltc bed avail. Sisters discussed at this time they are interested in remaining at [facility], familiar with care and she has been rec dialysis at the facility. Updated maico Poolmgt following.
--- NOTE | 2018-06-08 15:45 | EKG ---
[address] [address] ELECTROCARDIOGRAM REPORT Name: ZARINA NICOLAS Room #: 215-P ADM IN M.R.#: [id number] Admission: 06/08/18 Attend Phys: Wilman Jefferson MD Discharge: Date of : 48 Report #: [id number] THIS REPORT FOR: //name// [facility] Test Date: 2018-06-08 Test Time: 08:55:12 Pat Name: ZARINA NICOLAS Department: Room: 215 P Gender: F Locomotive Driver: Corazon SANCHEZ : 1950 Requested By: Jackie Apple Order Number: [id number] MD: Eleazar Romo Measurements Intervals [place] Rate: 105 P: 42 MT: 170 QRS: 51 QRSD: 95 T: QT: 367 QTc: 486 Interpretive Statements Sinus tachycardia Low voltage, extremity leads Consider anterior infarct Compared to ECG 06/07/2018 23:03:21 Low QRS voltage now present Myocardial infarct finding now present Atrial flutter no longer present Electronically Signed On 06-08-2018 15:45:20 DINING SERVICES MANAGER by Eleazar Romo [email or web address] <ELECTRONICALLY SIGNED> By: Eleazar Romo MD 06/08/18 1545 0855 0855 Eleazar Romo MD /EPI
--- NOTE | 2018-06-08 18:10 | NUR ---
PATIENT NOT IMPULSIVE, BED ALARM ON, FAMILY AT BEDSIDE. PATIENT NOT RESPONDING TO STAFF THIS SHIFT. INCOMPREHENSIBLE WORDS NOTED WHEN PATIENT TRIES TO SPEAK. OFTEN HAS SHORT BURSTS OF CRYING OUT, UNABLE TO VERBALIZE WHY. PATIENT ABLE TO BE CONSOLED QUICKLY. PATIENT TURNED FREQUENTLY. RIGHT CHEST PORT & RIGHT THIGH CATH C/D/I.
--- NOTE | 2018-06-09 04:22 | NUR ---
ASSESSMENT DOCUMENTED.PT RESTING IN NAD.PT SLEEPING MOST OF THE NOC BUT WHEN AWAKE PT YELLS OUT AND BURST IN CRIES,PT EASILY CONSOLED.PT ALERT TO SELF.DOES NOT FOLLOWS COMMANDS.RESPONDS MOSTLY TO PAINFUL STIMULIS.HER SISTER AT BEDSIDE.PT WAS GIVEN A BED BATHE THAT SHE TOLERATED.TURNED AND REPOSTIONED FREQUENTLY IN BED.NO UO THIS SHIFT SO FAR.PT SETS TO HAVE DIALYSIS TODAY.O2 AT [facility],SATS ADEQUATE.VSS.SINUS TACHY IN 110S MOST OF THE SHIFT.IVF AND ANTIBIOTICS TX PER ORDERS.NO ACUTE DISTRESS NOTED AT THIS TIME.WILL CONT TO MONITOR PER POC.
[2018-06-09 04:58] VITALS: BP 108/63
[2018-06-09 08:00] VITALS: BP 119/72
--- NOTE | 2018-06-09 08:21 | EKG ---
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: STEPH : 1950 Requested By: Jackie Apple Order Number: [id number] MD: Kyle Givens Measurements Intervals [place] Rate: 99 P: 50 UT: 167 QRS: 51 QRSD: 81 T: 19 QT: 416 QTc: 534 Interpretive Statements Sinus rhythm Low voltage, extremity and precordial leads Nonspecific T wave abnormality Compared to ECG 06/08/2018 08:55:12 low voltage is now present Electronically Signed On 06-09-2018 8:21:19 ATOMIC WELDER by Kyle Givens [email or web address] <ELECTRONICALLY SIGNED> By: Kyle Givens MD, [facility] 06/09/18 0821 8 8 Kyle Givens MD, [facility] /EPI
[2018-06-09 08:23] LABS: CALCIUM 9.2 mg/dL (8.5-10.1); POTASSIUM 4.5 mmol/L (3.5-5.1)
[2018-06-09 08:27] LABS: CREATININE 7.4 mg/dL (0.6-1.0)
--- NOTE | 2018-06-09 09:05 | HC ---
[facility] [address] [place] [address] CONSULTATION Name: ZARINA NICOLAS Room #: 211-P ADM IN M.R.#: [id number] Admission: 06/08/18 Attend Phys: Wilman Jefferson MD Discharge: Date of : 48 Report #: [id number] THIS REPORT FOR: //name// CC: Louis Bonds Wilman Jefferson DATE OF SERVICE: 06/08/2018 ATTENDING PHYSICIAN: Wilman Jefferson MD REASON FOR CONSULTATION: Fever. Bacteremia. HISTORY OF PRESENT ILLNESS: The patient is a 67-year-old woman with multiple medical problems, recently hospitalized at [facility] with what appears to have been an episode of bacteremia. Subsequently, she was transferred to [facility] and later on to [facility]. If the family reports things correctly, she did receive treatment for MRSA bacteremia and I believe she might have received vancomycin. Obviously, the patient is completely unable to give any information whatsoever. The patient's sister, the DPOA, relates she wants no resuscitation efforts on this patient anymore. I discussed the fact that under ideal circumstances I would recommend removal of Port-A-Cath and dialysis catheter, but obviously we are not dealing with ideal circumstances here. PAST MEDICAL HISTORY: End-stage renal disease, on chronic hemodialysis 3 times weekly. History of dementia with previous cerebrovascular accidents and evidence of brain atrophy by CT scanning of the brain. History of pulmonary embolism, on anticoagulation with warfarin. Congestive heart failure. Evidence of myocardial infarction by elevation of troponin. Right shoulder subluxation. History of systemic lupus erythematosus. Seizure disorder, on seizure medications. Previous episode of cardiac arrest and resuscitation x 2. Gastroesophageal reflux. Hypothyroidism. Chronic hepatitis C viral infection. Anemia of chronic disease. Malnutrition. DRUG ALLERGIES: SULFA DRUGS. MEDICATIONS: The patient is currently on treatment with Zosyn 3.375 grams IV every 12 hours, metoprolol 25 mg p.o. b.i.d., vancomycin 500 mg post-hemodialysis, sublingual nitroglycerin p.r.n., p.r.n. fentanyl, p.r.n. acetaminophen, normal saline 1000 mL every 12 hours, p.r.n. ondansetron. The patient has received loading dose of vancomycin and Zosyn. SOCIAL HISTORY: Two daughters. The patient has several siblings and 2 sisters are at bedside at present. REVIEW OF SYSTEMS: Unable to obtain. [address] [address] CONSULTATION Name: ZARINA NICOLAS Room #: 211-P [facility] IN [facility]#: [id number] Admission: 06/08/18 Attend Phys: Wilman Jefferson MD Discharge: Date of : 48 Report #: [id number] PHYSICAL EXAMINATION: GENERAL: Elderly unresponsive woman, hollering unintelligible things. VITAL SIGNS: Temperature of 102.6 on 06/07/2018 at 2228 hours. Current temperature is 99.1, pulse 106, respirations 18, BP 104/70. HEENMT: Head normocephalic, atraumatic. Pupils are equal and reactive. Mouth unable to examine. The patient follows no commands. NECK: Stiff. The patient is stiff all over. LUNGS: Few basilar crackles. HEART: S1, S2. No gallop or murmur. CHEST: Revealed right-sided Port-A-Cath site looks okay. BREASTS: Deferred. ABDOMEN: Soft, no masses or megaly. PELVIC AND RECTAL: Deferred. EXTREMITIES: Reveal right femoral dialysis catheter tunnel. No pretibial edema. Onychogryphosis. LABORATORY DATA: Sodium 134, potassium 4.6, BUN 43, creatinine 6.5, glucose 122, SGOT 49, alkaline phosphatase 177, albumin 2.1. Troponin 3.9. Protime 16.5, INR 1.6. WBC 11.8, hemoglobin 8.3, platelets 165,000. The white blood cell count differential revealed 89% segmented neutrophils. MICROBIOLOGY DATA: Blood cultures x 2 were obtained, and 1/2 samples already showing gram-positive cocci. RADIOLOGY EVALUATION: A chest x-ray revealed cardiomegaly, right-sided Port-A-Cath, left basilar atelectasis. X-ray of the shoulder, chronic degenerative and traumatic changes, right shoulder with dysplastic changes of the glenoid. CT of the head on 05/29/2018 revealed dilatation of the ventricles and widening of the fissures compatible with brain atrophy. ASSESSMENT: 1. Febrile illness with Gram-positive cocci in blood, suspect recurrent bacteremia, must entertain possibility of infection of dialysis catheter and/or Port-A-Cath. 2. End-stage renal disease on chronic hemodialysis. 3. History of pulmonary embolism. 4. Systemic lupus erythematosus. 5. Malnutrition. 6. Anemia of chronic disease. 7. Myocardial infarction. SUGGESTIONS AND RECOMMENDATION: Under ideal circumstances, obviously we must proceed with removal of the dialysis catheter and Port-A-Cath taking in consideration that these venous accesses may be infected. Since this patient is possibly at the end of her life and conservative approach consisting of dosing [facility] [address] [place] [address] CONSULTATION Name: ZARINA NICOLAS Room #: 211-P ADM IN M.R.#: [id number] Admission: 06/08/18 Attend Phys: Wilman Jefferson MD Discharge: Date of : 48 Report #: [id number] vancomycin post hemodialysis 3 times weekly for indefinite period of time is an alternative that I have discussed with the patient's sisters. The DPOA sister requests do not resuscitate. Dr. Jefferson, thank you for requesting my suggestions in the care of your patient. <ELECTRONICALLY SIGNED> By: Rylan Romo MD 06/09/18 0905 1343 1405 Rylan Romo MD /nt
[2018-06-09 12:00] VITALS: BP 105/71
--- NOTE | 2018-06-09 12:27 | NUR ---
Chart reviewed and case discussed with the care team. Nephrology visited with pt's sisters earlier today regarding prognosis and recommendation for consideration of pallilative/hospice care. Will follow for support and hospice referral if indicated.
[2018-06-09 16:00] VITALS: BP 117/75
[2018-06-09 20:21] VITALS: BP 151/97
--- NOTE | 2018-06-10 04:27 | NUR ---
ASSESSMENT DOCUMENTED.PT RESTING IN NAD,HER SISTER AT THE BEDSIDE.VSS.AFEBRILE.NSR ON MONITOR.NO UO.NS AT 80MLS/HR.RA W/O RESP DISTRESS.NO S/SX OF PAIN NOTED OR VOICED.PT HAD NO EPISODES OF YELLING OUT.TURNED AND REPOSITIONED IN BED FREQUENTLY.POC IS TO GET FAMILY TOGETHER WITH POC OF HAVING PT ADMITTED TO HOSPICE/PALLIATIVE CARE.DR HC ROUNDED ON PT LAST NOC,TALKED TO FAMILY INCLUDING CALLING DPOA.WILL CONT TO MONITOR PER POC.
[2018-06-10 05:00] VITALS: BP 127/62
[2018-06-10 05:40] LABS: ALBUMIN 1.6 g/dL (3.4-5.0); CREATININE 7.9 mg/dL (0.6-1.0); PHOSPHORUS 2.5 mg/dL (2.5-4.9); POTASSIUM 4.8 mmol/L (3.5-5.1)
[2018-06-10 08:00] VITALS: BP 115/78
--- NOTE | 2018-06-10 09:00 | HC ---
[facility] [address] [place] [address] CONSULTATION Name: ZARINA NICOLAS Room #: 211-P ADM IN M.R.#: [id number] Admission: 06/08/18 Attend Phys: Wilman Jefferson MD Discharge: Date of : 48 Report #: [id number] THIS REPORT FOR: //name// CC: Louis Jefferson REASON FOR CONSULTATION: End-stage renal disease. REASON FOR PRESENTATION: Sent from her nursing facility because of fever and weakness. HISTORY OF PRESENT ILLNESS: I am not able to obtain the details of her history of present illness. The patient is currently having acute mental status changes. She has an end-stage renal disease, maintained on hemodialysis every Wednesday, Wednesday and Wednesday. She has a very complicated past medical history including lupus, had been on dialysis for the last 20 years. She is also known to have cardiac arrest back in 2018. She had the arrest after the biopsy. She developed pulseless electrical activity. She was admitted to numerous hospitals, including [facility], [facility] and recently in the [facility]. I am being consulted to manage her end-stage renal disease. She presented yesterday with altered mental status and fever. She was found to have leukocytosis, hypertension and elevated troponin. From the dialysis perspective, she seemed to have tolerated her dialysis while at the [facility]. PAST MEDICAL HISTORY: 1. End-stage renal disease. 2. Lupus. 3. Post-cardiac arrest. 4. COPD. 5. Bilateral hip replacement. 6. Thyroidectomy. 7. Seizure. 8. Post-cardiac arrest. MEDICATIONS: Listed medications: 1. Tramadol. 2. Azithromycin. 3. Warfarin. 4. Carvedilol. 5. Amlodipine. 6. Benazepril. 7. Keppra. SOCIAL HISTORY: She resides at the [facility]. No other social history obtained given the patient's mental status. [facility] [address] [place] [address] CONSULTATION Name: ZARINA NICOLAS Room #: 211-P [facility].#: [id number] Admission: 06/08/18 Attend Phys: Wilman Jefferson MD Discharge: Date of : 48 Report #: [id number] FAMILY HISTORY: Unobtainable given the patient's mental status. REVIEW OF SYSTEMS: Completely unobtainable given the patient's mental status. PHYSICAL EXAMINATION: VITAL SIGNS: She is hypotensive with a blood pressure of 87/49, temperature 37.3 and respiratory rate 18. GENERAL: She is completely disoriented to place, time and person. HEAD AND NECK: There is a right-sided port. CHEST: Decreased air entry bilaterally. CARDIOVASCULAR: No rub detected. ABDOMEN: Soft, nontender. LOWER EXTREMITIES: Right femoral tunneled catheter. LABORATORY DATA: Laboratory values reviewed. White blood cell count 11.8. Sodium 134, BUN is 43 and creatinine is 6.4. Troponin is 3.9. ASSESSMENT, IMPRESSION AND PLAN: 1. End-stage renal disease. 2. Hypotension with potential sepsis. 3. Elevated troponins. 4. Dementia. 5. Lupus. 6. Remote history of deep venous thrombosis and pulmonary embolism. 7. Post-cardiac arrest. 8. This is a rather grim condition. The patient is refusing to cooperate with medical care. I will not dialyze today given her hemodynamic instability. Cultures had been obtained and I am very concerned about line infection. It looks like that she is utilizing the femoral catheter for dialysis, which is a potential source of infection. 9. Empiric antibiotic. 10. We really need to discuss with the family members plans of care, code, potentially proceed with hospice and palliative care. <ELECTRONICALLY SIGNED> By: Josemanuel Duffy MD 06/10/18899 3 5 Josemanuel Duffy MD /nt
[2018-06-10 12:11] VITALS: BP 127/76
--- NOTE | 2018-06-10 14:01 | NUR ---
Straw Hat Brim Cutter Operator visited with the pt, her sister Kelsey, sister Yadira, a dtr Tiffani, dtr Lubna (on speaker phone) and a grand dtr at bedside this afternoon regarding hospice services, benefits and options should they decide to focus on palliative care. The pt was alert and oriented to herself and place;however it was unclear if she fully understands her situation. The pt's family stated understanding of her enstage illness and they have spoken with Nephrology. They are trying to include the pt in decision making as she is more alert and feel she wants to try and continue dialysis. The pt did acknowledge she was familiar with [facility]. Questions regarding hospice benefits, options and care answered. Plan at this time is to try another dialysis treatment and see if she is able to tolerate it, continue iv atb and aggressive tx for a few days. Pt is a DNR. They appear interested in [facility] or [facility] referrals should her condition worsen or she not tolerate further dialysis tx. Emotional support provided.
[2018-06-10 16:00] VITALS: BP 131/71
--- NOTE | 2018-06-10 18:34 | NUR ---
PT STATUS - FAMILY AND DR ZUNIGA DISCUSSED PT DIALYSIS AND HAVE AGREED TO DIALIZE TODAY AND RESTART ABX. SPOKE WITH DR CH WHO IS AWARE. WILL RE-EVAL PT STATUS OVER THE WEEKEND PER FAMILY REQUEST. DIALYSIS AT BS, WILL MONITOR.
[2018-06-10 19:33] VITALS: BP 135/81
[2018-06-11 04:16] VITALS: BP 110/68
--- NOTE | 2018-06-11 06:08 | NUR ---
ASSUMED PT CARE AT 1900 WITH FAMULY AT BEDSIDE. PT IS STABLE AND WAS DOING DIALYSIS, PT HEART RATE ELEVATED DURING DIALYSIS, METOPROLOL ADMINSITERED TO PATIENTS. SCHEDULED MEDS ADMINISTERED TO PT. PT IS RELUCTANT TO TAKE MEDS, DENIES ANY FURTHER NEEDS. VITAL SIGN STABLE
[2018-06-11 07:00] VITALS: BP 94/55
--- NOTE | 2018-06-11 08:00 | NUR ---
VANCOMYCIN POST DIALYSIS. ORDER FOR VANCO WAS NOT ON PT'S MAR PRIOR TO DIALYSIS, CONFIRMED WITH PHARM. ORDER WAS PUT IN BY ED PHYSICIAN ON 06/08. ORDER WAS ONLY A PLACE STEWART PER PHARM AND NOT AN ACTUALL ORDER. CONFIRMED WITH PHARM AND ORDER INITIATED AT 0730 APROX ON 06/11. SPOKE WITH [place] IN PHARM.
[2018-06-11 15:50] VITALS: BP 106/68
[2018-06-11 20:00] VITALS: BP 121/75
--- NOTE | 2018-06-12 03:33 | NUR ---
PATIENT AWAKE, ORIENTED TO SELF. REORIENTED TO PLACE AND DATE. OBEYS COMMAND. COMPLAINT OF PAIN ON THE LEFT ARM 4/10 ACHING ON AND OFF PAIN, PRN MEDS FOR PAIN GIVEN WHICH AFFORDED PARTIAL RELIEF FROM 4 TO 1/10. SR WITH PVCS, PACS ON THE MONITOR. 02 AT 2 L/NC, LUNG SOUNDS CLEAR DIMINISHED ON THE BASES. MAINTAINED ON ASPIRATION AND FALL PRECAUTION. TURNING Q 2 HOURS DONE. ORAL CARE AND PERIANAL CARE DONE. LEFT ARM FISTULA NEGATIVE THRILL AND NEGATIVE BRUIT. RIGHT THIGH DIALYSIS CATH INTACT. RIGHT CHEST PORT INTACT. LEFT EJ IV INTACT AND FLUSHES WELL. FF UP POC.
[2018-06-12 04:30] VITALS: BP 109/74
[2018-06-12 05:50] LABS: HEMATOCRIT 22.3 % (37.0-47.0); MCH 28.4 pg (26.0-34.0); MCHC 31.5 g/dL (28.0-37.0); MCV 90.2 fL (80.0-100.0); RBC 2.48 mil/uL (4.20-5.00); RDW 19.7 % (10.5-14.5); WBC 6.8 thou/uL (4.0-11.0)
[2018-06-12 07:34] VITALS: BP 119/73
[2018-06-12 11:50] VITALS: BP 97/65
[2018-06-12 15:22] VITALS: BP 97/61
--- NOTE | 2018-06-12 19:33 | NUR ---
ASSUMED CARE OF PT AT SHIFT CHANGE. ASSESSMENTS CHARTED. MEDS GIVEN PER JUL. PT AO TO SELF, REORIENTED FREQUENTLY. VSS, PAIN ASSESSED USING FLACC PAIN SCALE THIS SHIFT, PAIN MANAGED WITH PO AND IV MEDS. DENIES CHEST PAIN. O2 SATS WNL ON 3 L O2, NO S/SX OF CARDIAC OR RESP DISTRESS NOTED. FAMILY VISITED WITH PT TODAY. PT HAD SEVERAL EPISODES OF YELLING OUT STATING "I WANT TO GO HOME." REASSURANCE AND THERAPEUTIC COMMUNICATION USED TO CALM PT. HOSPICE HAS BEEN DISCUSSED BETWEEN THE PT, PT FAMILY AND SOCIAL WORK. AWAITING FOR PT AND PT FAMILY TO MAKE DECISION REGARDING HOSPICE. CURRENTLY PT IS CALM AND SITTING IN BED WITH SISTER AT BEDSIDE. WILL CONTINUE TO MONITOR AND FOLLOW POC.
--- NOTE | 2018-06-13 03:45 | NUR ---
ASSESSMENT DOCUMENTED.PT BEEN RESTING IN NO ACUTE DISTRESS.A/O TO SELF,FOLLOWS COMMANDS.PT CONTINUES TO YELLS PERIODICALLY CALLING OUT HER PAST FAMILIES NAMES PER HER SISTER MICHELE.PAIN MEDS GIVEN FOR GENERALIZED PAIN.NO SIGNIFICANT CHANGES NOTED AT THIS TIME.WILL CONT TO MONITOR PER POC.
[2018-06-13 03:57] VITALS: BP 91/63
[2018-06-13 04:08] LABS: HEMATOCRIT 23.3 % (37.0-47.0); HEMOGLOBIN 7.4 gm/dL (12.0-15.0); MCH 29.1 pg (26.0-34.0); MCV 91.1 fL (80.0-100.0); RBC 2.55 mil/uL (4.20-5.00); RDW 19.8 % (10.5-14.5); WBC 8.1 thou/uL (4.0-11.0)
[2018-06-13 08:00] VITALS: BP 102/74
[2018-06-13 12:00] VITALS: BP 111/70
--- NOTE | 2018-06-13 13:33 | NUR ---
Assess due to calorie count ordered over the weekend. Chart reviewed and DPOA would like to pursue hospice. Will defer nutrition assessment, available as needed.
--- NOTE | 2018-06-13 13:40 | NUR ---
With Dr Jefferson present met with family at bedside. Discussed hospice services and family interested in Hospice eval. Sent referral to Hospice with planned eval later today.
[2018-06-13 15:30] VITALS: BP 101/64
--- NOTE | 2018-06-13 15:57 | NUR ---
[facility] EVALED AND ACCEPTING FOR HOSPICE HOUSE. PATIENT HAS BEEN ON HOSPICE SERVICES IN PAST AND THEREFOR NEEDS RN PRACTIONER FROM HOSPICE TO COMPLETE ONSITE VISIT ASSESSMENT TO ADMIT TO HOSPICE. TENATIVE PLAN FOR HOSPICE HOUSE TRANSFER IN AM. UPDATED FAMILY AT BEDSIDE WHO IS IN AGREEMENT.
[2018-06-13 19:07] VITALS: BP 94/63
--- NOTE | 2018-06-13 20:57 | NUR ---
ASSUMED CARE OF PT AT 0700. PT LETHARGIC AND ORIENTED TO SELF. PT HAD FAMILY IN ROOM MOST OF SHIFT AND DAUGHTER KI, WILLIAM SPOKE WITH DR. PATEL REGARDING PLAN OF CARE. DR PATEL CALLED ME AND STATED THAT PT WAS TO GO TO HOSPICE. CASE MANAGEMENT NOTIFIED AND HOSPICE REP CAME TO SEE PT AND FAMILY. PT GIVEN FENT. FOR PAIN MANAGEMENT. PT MORE LETHARGIC IN LATE AFTERNOON. PT STILL HAS DIALYSIS PORT IN RIGHT THIGH. HOSPICE REP ASKED THAT WE LEAVE RAMU CATH AND JOSE LUIS EJ IN WHEN PT TRANSFERRED TO HOSPICE. IR WILL NEED TO REMOVED DIALYSIS PORT IF ORDERS. WILL CONT WITH POC.
[2018-06-14 03:15] VITALS: BP 127/80
--- NOTE | 2018-06-14 03:55 | NUR ---
ASSUMED PT CARE AT 1900. PT ASLEEP, VITAL SIGNS STABLE, ASSESSMENT CHARTED. PT VERY AGITATED WHEN AWAKE,ORIENTED ONLY TO SELF. GRIMACE TO PAIN IN LE, PAIN MEDICATION GIVEN.PT RESTED INTERMITTENTLY THROUGH THE NIGHT. HOURLY ROUNDING COMPLETED. PT REFUSED TURNS. FOLLOW POC, POSSIBLE DISCHARGE TO HOSPICE CARE [place]. WILL CONTINUE TO MONITOR.
[2018-06-14] MEDS ORDERED: MORPHINE S100 MG/5 M SUBLING (10:00)
--- NOTE | 2018-06-14 11:00 | NUR ---
PT. DISCHARGIMG TODAY TO HOSPICE HOUSE. FAXED DC ORDERSS/SUMMARY TO FACILITY AND SPOKE WITH JOHNNIE IN ADM. SHE RECEIVED DC ORDERS. TRANSPORT ARRANGED VIA [facility]. THROUGH [facility] TRIP #[id number]. FAMILY NOTIFIED PER NANDO. UNIT NOTIFIED AND CHART COPY PER US. RN TO CALL REPORT TO [phone].
[2018-06-14 11:12] VITALS: BP 98/68
== END 2018-06-14 13:00 | disposition hospice, home (50) | DRG 871 ==
LOC: ER 22:24 → 2N 06-08 00:07 → EROBS 06-08 00:07 → 2N 06-08 02:12
PROVIDERS: Emergency Medicine; Hospitalist; Internal Medicine; Nurse Practitioner Adult Health; ADMIT Hospitalist
PROC: 5A1D70Z Performance of Urinary Filtration, Intermittent, Less than 6 Hours Per Day (ICD-10-PCS; principal; 2018-06-10)
DX: A41.01 Sepsis due to Methicillin susceptible Staphylococcus aureus (principal); I21.4 Non-ST elevation (NSTEMI) myocardial infarction; N18.6 End stage renal disease; J96.90 Respiratory failure, unspecified, unspecified whether with hypoxia or hypercapnia; G92 Toxic encephalopathy; T80.211A Bloodstream infection due to central venous catheter, initial encounter; E46 Unspecified protein-calorie malnutrition; I48.92 Unspecified atrial flutter; I13.2 Hypertensive heart and chronic kidney disease with heart failure and with stage 5 chronic kidney disease, or end stage renal disease; I50.32 Chronic diastolic (congestive) heart failure; Z66 Do not resuscitate; J44.9 Chronic obstructive pulmonary disease, unspecified; Y84.1 Kidney dialysis as the cause of abnormal reaction of the patient, or of later complication, without mention of misadventure at the time of the procedure; F03.90 Unspecified dementia, unspecified severity, without behavioral disturbance, psychotic disturbance, mood disturbance, and anxiety; D63.8 Anemia in other chronic diseases classified elsewhere; Z96.643 Presence of artificial hip joint, bilateral; B18.2 Chronic viral hepatitis C; E78.5 Hyperlipidemia, unspecified; K21.9 Gastro-esophageal reflux disease without esophagitis; I48.91 Unspecified atrial fibrillation; M32.9 Systemic lupus erythematosus, unspecified; Z86.718 Personal history of other venous thrombosis and embolism; Z86.711 Personal history of pulmonary embolism; Z98.41 Cataract extraction status, right eye; Z98.42 Cataract extraction status, left eye; Z99.2 Dependence on renal dialysis; Z89.421 Acquired absence of other right toe(s); Z79.899 Other long term (current) drug therapy; Z88.2 Allergy status to sulfonamides; Z79.01 Long term (current) use of anticoagulants; Y92.89 Other specified places as the place of occurrence of the external cause; Z68.31 Body mass index [BMI] 31.0-31.9, adult; Z23 Encounter for immunization
CPT/HCPCS: 10081; 32100